=== PATIENT | male | born 1960 | race Caucasian/White ===

== ENCOUNTER 2019-09-25 08:55 | Inpatient (IN) | payer OTHER ==
[~2019-09-25] VITALS: Ht 177.8 cm; Wt 59.9 kg
[~2019-09-25 08:55] MED LIST: ACCUNEB SO1.25 MG/1; ACETAMINOPHEN325 M1 PO; ADVIL200 M1 PO; ALBUTEROL2.5 MG/0.5 INH; ALBUTEROL2.5 MG/31 INH; ALPRAZOLAM ER1 MG PO; ATIVAN1 MG; BREO ELLIPTA 11 EACH IH; BROVANA15 MCG/2 M INH; BUDESONIDE0.5 MG/2 M INH; CEFTIN 250 MG250 MG PO; CIPROFLOXACIN500 M3 PO; CLONIDINE0.1 PO; COLACE 100 MG100 MG PO; COMBIVENT INH; DIAZEPAM 5 MG5 MG PO; DIFLUCAN150 MG PO; DILTIAZEM ER240 M1 PO; DOXYCYCLINE 10100 M1; FENOFIBRATE145 M1 PO; FLEXERIL PO; GLYCOLAX POWDER17 G1 PO; HYDROCODON-ACE1 EAC7 PO; HYDROCODONE-AC120 ML PO; HYDROCODONE-AP1 EAC6 PO; K-DUR10 MEQ PO; LEVAQUIN 500 M500 M4 PO; LEVAQUIN 500 M500 M6 PO; LISINOPRIL20 MG PO; LITHIUM CARBON300 M3 PO; LITHIUM CARBONATE PO; MEDROL DOSPAK21 TAB PO; MEDROLDOSEPACK PO; MOM PO; MUCINEX TA600 MG/TA1 PO; MUCINEX TA600 MG/TA2 PO; MUCINEX600 MG PO; NICOTINE TRANSD21 M1 TRANSDERM; NORCO 5-325 TA1 EACH PO; NORFLEX100 MG PO; NYSTATIN 1100000 U/M; NYSTATIN 1100000 U/M PO; NYSTATIN PO; PERCOCET 5-3251 EACH PO; PREDNISOLONE PO; PREDNISONE 10 M10 M1; PREDNISONE 10 M10 MG PO; PREDNISONE 20 M20 M1 PO; PREDNISONE 20 M20 MG; PREDNISONE 20 M20 MG PO; PREDNISONE 5 MG5 M1; PREDNISONE50 MG PO; PRILOSEC 20 MG20 MG; PRILOSEC40 MG PO; PROAIR HFA8.5 GM; PROAIR HFA8.5 GM INH; PROZAC 10 MG CA10 MG PO; PULMICORT0.5 MG/2 M; SEROQUEL XR 30300 M1 PO; SIMVASTATIN10 MG PO; SPIRIVA INH; SYMBICORT160 MCG/4. INH; TRAMADOL 50 MG50 MG; TRAMADOL 50 MG50 MG PO; ULTRAM 50MG TAB50 MG PO; VENTOLIN HFA 1818 GM INH; XANAX 0.25 MG0.25 MG PO; XANAX 0.5 MG0.5 M1 PO; XANAX XR1 MG PO; XOPENEX 0.63 MG/3 M1 INH; XOPENEX0.63 MG/3 INH; ZOCOR 10 MG TAB10 MG PO; ZOCOR5 MG PO; ZPAK; ZPAK PO; ZYPREXA 10 MG T10 MG PO
[2019-09-25 08:57] VITALS: BP 172/93
[2019-09-25 09:33] LABS: BASOPHILS 0.6 % (0.0-2.0); EOSINOPHILS 2.3 % (0.0-3.0); HEMATOCRIT 39.8 % (42.0-52.0); HEMOGLOBIN 13.4 gm/dL (14.0-18.0); LYMPHOCYTES 18.2 % (24.0-44.0); MCH 31.6 pg (26.0-34.0); MCHC 33.6 g/dL (28.0-37.0); MCV 94.2 fL (80.0-100.0); MONOCYTES 7.7 % (1.0-8.0); PLATELET COUNT 212 thou/uL (150-400); POLYS 71.2 % (36.0-66.0); RBC 4.23 mil/uL (4.50-6.00); RDW 13.8 % (10.5-14.5); WBC 8.5 thou/uL (4.0-11.0)
[2019-09-25 09:46] LABS: BE(vivo) 6.8 mmol/L (-2 to +3); HCO3 36.9 mmol/L (22.0-26.0); PCO2 83.3 mmHg (35.0-45.0); PO2 168.3 mmHg (80.0-100.0); pH 7.264 (7.360-7.450); sO2 98.8 % (92.0-98.0)
[2019-09-25 10:03] LABS: ANION GAP 4 mmol/L (7-16); BUN 10 mg/dL (7-18); CHLORIDE 98 mmol/L (98-107); CO2 38 mmol/L (21-32); CREATININE 0.6 mg/dL (0.7-1.3); GLUCOSE 145 mg/dL (74-106); POTASSIUM 4.1 mmol/L (3.5-5.1); SODIUM 140 mmol/L (136-145)
[2019-09-25 10:08] LABS: TROPONIN-I <0.06 ng/mL (<0.06)
[2019-09-25 11:15] LABS: BE(vivo) 8.2 mmol/L (-2 to +3); HCO3 35.3 mmol/L (22.0-26.0); PCO2 59.9 mmHg (35.0-45.0); PO2 50.7 mmHg (80.0-100.0); pH 7.388 (7.360-7.450); sO2 84.5 % (92.0-98.0)
[2019-09-25 12:21] VITALS: BP 131/80
[2019-09-25 12:47] VITALS: BP 135/65
[2019-09-25 13:16] VITALS: BP 145/80
--- NOTE | 2019-09-25 15:29 | NUR ---
1320 PT ADMITTED FROM ER TO ROOM 364, PT ALERT AND ORIENTED X4, PT DENIES NAUSEA AND VOMITING. HE COMPLAINS OF NON CARDIAC CHEST PAIN ESPECIALLY WITH DEEP BREATH AND COUGH. PT ORIENTED TO ROOM. CONSENTS SIGNED BY PATIENT.PT PLACED ON TELE, SINUS TACHYCARDIA, ON 2L NC, OXYGEN WNL. PT REFUSE SCD'S, EDUCATION REINFORCED, CONTINUED TO REFUSE. PT DENIES ANY NEEDS AT THE MOMENT, CALL LIGHT IN REACH, BED AT LOWEST LEVEL WITH ALARM ON.
--- NOTE | 2019-09-25 16:11 | NUR ---
request patient to stay in enhanced precautions over night and re-evaluate in the morning.
--- NOTE | 2019-09-25 16:12 | EKG ---
[facility] [place] [address] ELECTROCARDIOGRAM REPORT Name: AUBREE CARDENAS Room #: 364-P ADM IN M.R.#: [id number] Admission: 09/25/19 Attend Phys: Chin Nova MD Discharge: Date of : 58 Report #: [id number] THIS REPORT FOR: cc: Lenore Duron Christine L. 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 : 1960 Requested By: Maricarmen Vazquez Order Number: [id number] MD: Ravin Bo Measurements Intervals [place] Rate: 119 P: 92 NH: 144 QRS: 109 QRSD: 97 T: 68 QT: 323 QTc: 455 Interpretive Statements Sinus tachycardia Consider right atrial enlargement Right axis deviation Compared to ECG 04/15/2016 15:43:23 No significant change was found Electronically Signed On 09-25-2019 16:10:23 CDT by Ravin Bo [email or web address] <ELECTRONICALLY SIGNED> By: Ravin Bo MD, [facility] 09/25/19 1610 0903 Ravin Bo MD, [facility] /EPI
[2019-09-25 16:16] VITALS: BP 114/74
--- NOTE | 2019-09-25 18:51 | NUR ---
1600 PT TESTED NEGATIVE FOR COVID19, SINDY TO NURSE CALLED AND NOTIFY. PT WILL STAY ON 3W PER TAMIR ORDER UNTIL TOMORROW. DR. STRINGER AWARE.
[2019-09-25 20:25] VITALS: BP 135/77; BP 435/77
[2019-09-26 05:56] LABS: ABSOLUTE NEUTROPHILS 8.2 thou/uL (1.4-8.2); BASOPHILS 0.2 % (0.0-2.0); LYMPHOCYTES 8.2 % (24.0-44.0); MCH 31.3 pg (26.0-34.0); MCHC 33.3 g/dL (28.0-37.0); MONOCYTES 7.4 % (1.0-8.0); PLATELET COUNT 209 thou/uL (150-400); POLYS 84.2 % (36.0-66.0); RBC 4.15 mil/uL (4.50-6.00); RDW 14.3 % (10.5-14.5); WBC 9.7 thou/uL (4.0-11.0)
[2019-09-26 06:31] LABS: CALCIUM 8.8 mg/dL (8.5-10.1); CREATININE 0.7 mg/dL (0.7-1.3); MAGNESIUM 2.2 mg/dL (1.8-2.4); POTASSIUM 4.2 mmol/L (3.5-5.1)
[2019-09-26 06:44] VITALS: BP 136/83
[2019-09-26 08:45] VITALS: BP 131/83
--- NOTE | 2019-09-26 10:06 | EKG ---
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: MIREILLE : 1960 Requested By: Zaria Cox Order Number: [id number] MD: Ravin Bo Measurements Intervals [place] Rate: 130 P: 93 NC: 112 QRS: 116 QRSD: 103 T: 28 QT: 322 QTc: 474 Interpretive Statements Sinus tachycardia Right axis deviation, possible RVH Artifact in lead(s) Compared to ECG 09/25/2019 09:03:26 No significant change was found Electronically Signed On 09-26-2019 10:04:23 CDT by Ravin Bo [email or web address] <ELECTRONICALLY SIGNED> By: Ravin Bo MD, [facility] 09/26/19 1004 044 0442 Ravin Bo MD, [facility] /EPI
[2019-09-26 12:22] VITALS: BP 152/74
--- NOTE | 2019-09-26 12:39 | NUR ---
PT CARE ASSUMED CARE AT 0700, PT ALERT AND ORIENTED X4, DENIES CHEST PAIN, SOB, NAUSEA AND VOMITING. PT ON 2L OF OXYGEN, NO SIGNS OF DISTRESS NOTED. PT COMPLAINS OF BACK PAIN, PAIN MED GIVEN PER ORDER. ASSESSMENT AND VITALS SIGNS COMPLETED. DENIES ANY NEEDS AT THE MOMENT. CALL LIGHT AND TABLE IN REACH. BED AT LOWEST LEVEL. WILL CONTINUE TO MONITOR.
[2019-09-26 16:45] VITALS: BP 138/73
[2019-09-26 19:36] VITALS: BP 141/72
--- NOTE | 2019-09-27 03:16 | NUR ---
ASSUMED CARE OF PT AT 1900HRS FROM 3W. PT IS AOX4 AND LETS NEEDS BE KNOWN. FALL PRECAUTION IN PLACE. 2L O2 VIA NC CONTINUED. PT REPORTED SOME PAIN AND ANXIETY AND WAS TREATED WITH PRN PAIN MEDS. PT WAS ABLE TO GET COMFORTABLE AND SLEEP PART OF THE SHIFT. VSS AND NO S/S OF ACUTE DISTRESS. WILL CONTINUE TO MONITOR.
[2019-09-27 03:33] VITALS: BP 123/63
[2019-09-27 07:30] VITALS: BP 140/64
--- NOTE | 2019-09-27 10:11 | EKG ---
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: MIREILLE : 1960 Requested By: Chin Nova Order Number: [id number] MD: Ravin Bo Measurements Intervals [place] Rate: 129 P: 93 MS: 139 QRS: 121 QRSD: 100 T: 51 QT: 322 QTc: 472 Interpretive Statements Sinus tachycardia Consider right atrial enlargement Right axis deviation, consider RVH Compared to ECG 09/25/2019 09:03:26 No significant change was found Electronically Signed On 09-27-2019 10:09:57 CDT by Ravin Bo [email or web address] <ELECTRONICALLY SIGNED> By: Ravin Bo MD, [facility] 09/27/19 1009 0439 0439 Ravin Bo MD, [facility] /EPI
[2019-09-27 15:55] VITALS: BP 116/68
--- NOTE | 2019-09-27 18:13 | NUR ---
Assumed patient care at 0715. Vital signs have been stable. BS hyperactive x's 4, skin is clean, warm dry and intact. Lung sounds are noted to have faint wheezes and are diminished. Patient continues on O2 @ 2 Liters. He becomes very tired and anxious upon minimal exertion (patient verbalizes the concern in his sudden change in condition). Patient now has Lorazepam 1mg po q 6hrs for anxiety that has not been decreased with Hydroxyzine. He has been educated about safety and proper use of this medication, as well as Hydrocodone that he has requested and recieved for non-cardiac chest pain. Hydroxyzine has been minimally helpful. Both Hydrocodone and Lorazepam have been notably effective when used together (or closely given together), as patient's anxiety and pain have been greatly decreased. Patient's tremors are noticeably decreased with these two medications as well. Appetite has been good, as well as fluid intake. He has also had good urine output. Patient has been pleasant and cooperative with all tests and treatments. Will continue to monitor.
[2019-09-27 19:51] VITALS: BP 122/64
[2019-09-28 07:12] VITALS: BP 126/72
--- NOTE | 2019-09-28 08:47 | NUR ---
progress pt progressing stills feels weak and not ready to go home but states overall he feels better. rt tx's continue, accuchecks and iv steroids continue on 2 liters o2 having anxiety and taking xanax with effect. slept most of night voiding qs, bm yesterday morning continue poc.
[2019-09-28 09:19] LABS: ABSOLUTE NEUTROPHILS 9.2 thou/uL (1.4-8.2); BASOPHILS 0.1 % (0.0-2.0); HEMATOCRIT 37.6 % (42.0-52.0); HEMOGLOBIN 12.6 gm/dL (14.0-18.0); LYMPHOCYTES 9.9 % (24.0-44.0); MCH 31.2 pg (26.0-34.0); MCHC 33.5 g/dL (28.0-37.0); MONOCYTES 3.9 % (1.0-8.0); PLATELET COUNT 238 thou/uL (150-400); POLYS 86.1 % (36.0-66.0); RBC 4.04 mil/uL (4.50-6.00); RDW 14.1 % (10.5-14.5); WBC 10.7 thou/uL (4.0-11.0)
[2019-09-28 09:23] LABS: CREATININE 0.7 mg/dL (0.7-1.3); POTASSIUM 3.8 mmol/L (3.5-5.1)
[2019-09-28 15:09] VITALS: BP 134/58
--- NOTE | 2019-09-28 19:27 | NUR ---
PT A&OX4, VSS, PAIN IN CHEST NON CARDIAC. IV PATENT. PATIENT COPLAINT OF ANXIETY, MEDICATION GIVEN ORDERED. PATIENT REMAINS ON 2L OF O2 AND THE SAME AMOUNT AT HOME. NO C/O OF SOA, NO SIGNS OF DISTRESS. WILL CONTINUE TO MONITOR.
[2019-09-28 19:49] VITALS: BP 152/79
--- NOTE | 2019-09-29 05:22 | NUR ---
ASSUMED PT CARE AROUND 1930. AXOX3. 2LPN VIA NC. VSS. NO S/S ACUTE DISTRESS NOTED OR REPORTED AT THIS TIME. WILL CONT TO MONITOR FOR ANY CHANGES IN CONDITION.
[2019-09-29 07:28] VITALS: BP 112/88
--- NOTE | 2019-09-29 10:00 | NUR ---
tried calling pt x 2 via phone call. no answer left message for requested return call. unable to visit with bedside nurse rt with in pt room. will cont following as needed for dcp.
[2019-09-29] MEDS ORDERED: PROAIR HFA8.5 GM INH (12:37)
[2019-09-29] MEDS ORDERED: LORAZEPAM 1 MG T1 MG PO (12:38)
[2019-09-29] MEDS ORDERED: NORCO 5-325 TA1 EAC2 PO (12:38)
[2019-09-29] MEDS ORDERED: MUCINEX600 MG PO (12:39)
[2019-09-29] MEDS ORDERED: BREO ELLIPTA 11 EACH IH (12:39)
[2019-09-29] MEDS ORDERED: PREDNISONE 10 M10 M1 PO (12:40)
[2019-09-29 14:25] VITALS: BP 112/88
--- NOTE | 2019-09-29 20:29 | NUR ---
Assumed patient care at 0715.Vital signs stable, LSCTA (diminished), skin is clean, warm, dry and intact. Anxiety and back/chest pain continue. Patient given medications for this with effectiveness. Tremors continue. O2 continues at 2 Liters per nasal cannula. Food and fluid intake are adequate. Patient was Discharged today via family member at 1515. He verbalized an understanding to all discharge instructions before signing paperwork. Patient left with all belongings.
== END 2019-09-29 16:06 | disposition home health service (06) | DRG 189 ==
LOC: ER 08:55 → 3W 11:51 → EROBS 11:51 → 4W 11:51 → 3W 12:44 → 4W 09-26 19:00
PROVIDERS: Emergency Medicine Emergency Medical Services; Nurse Practitioner; ADMIT Hospitalist
DX: J96.21 Acute and chronic respiratory failure with hypoxia (principal); J44.1 Chronic obstructive pulmonary disease with (acute) exacerbation; J84.10 Pulmonary fibrosis, unspecified; E78.5 Hyperlipidemia, unspecified; F41.9 Anxiety disorder, unspecified; G89.29 Other chronic pain; M54.9 Dorsalgia, unspecified; K59.00 Constipation, unspecified; F31.9 Bipolar disorder, unspecified; T38.0X5A Adverse effect of glucocorticoids and synthetic analogues, initial encounter; R73.09 Other abnormal glucose; Z20.828 Contact with and (suspected) exposure to other viral communicable diseases; F17.210 Nicotine dependence, cigarettes, uncomplicated; J98.4 Other disorders of lung; Z91.19 Patient's noncompliance with other medical treatment and regimen; Z79.899 Other long term (current) drug therapy; Y92.89 Other specified places as the place of occurrence of the external cause
CPT/HCPCS: 10040; 10047; 10879

== ENCOUNTER → 2019-11-06 | Outpatient (CLI) | payer OTHER ==
[~2019-11-06] MED LIST changes: +LORAZEPAM 1 MG T1 MG PO; +NORCO 5-325 TA1 EAC2 PO; +PREDNISONE 10 M10 M1 PO
== END ==
LOC: CAT 09:36
PROVIDERS: ATTEND Internal Medicine
DX: Z12.2 Encounter for screening for malignant neoplasm of respiratory organs (principal); Z87.891 Personal history of nicotine dependence; J43.8 Other emphysema

== ENCOUNTER 2020-01-23 13:28 | Inpatient (IN) | payer OTHER ==
[~2020-01-23] VITALS: Ht 175.3 cm; Wt 57.2 kg
[2020-01-23 13:29] VITALS: BP 120/77
[2020-01-23 13:52] LABS: ABSOLUTE NEUTROPHILS 9.5 thou/uL (1.4-8.2); BASOPHILS 0.4 % (0.0-2.0); EOSINOPHILS 0.2 % (0.0-3.0); HEMOGLOBIN 13.4 gm/dL (14.0-18.0); LYMPHOCYTES 15.3 % (24.0-44.0); MCH 31.5 pg (26.0-34.0); MCHC 34.4 g/dL (28.0-37.0); MCV 91.7 fL (80.0-100.0); MONOCYTES 8.5 % (1.0-8.0); PLATELET COUNT 244 thou/uL (150-400); POLYS 75.6 % (36.0-66.0); RBC 4.25 mil/uL (4.50-6.00); RDW 12.8 % (10.5-14.5); WBC 12.6 thou/uL (4.0-11.0)
[2020-01-23 13:59] LABS: CALCIUM 8.6 mg/dL (8.5-10.1); CREATININE 0.5 mg/dL (0.7-1.3); POTASSIUM 3.7 mmol/L (3.5-5.1)
[2020-01-23 14:07] LABS: ALBUMIN 3.9 g/dL (3.4-5.0); TOTAL PROTEIN 7.2 g/dL (6.4-8.2)
[2020-01-23] MEDS ORDERED: IPRAT-ALBUT 0.5-3 ML (16:35)
[2020-01-23 17:39] VITALS: BP 127/80
[2020-01-23 18:37] VITALS: BP 121/66
[2020-01-23 21:55] VITALS: BP 116/63
--- NOTE | 2020-01-23 23:21 | NUR ---
PATIENT TRANSFERRED FROM ED DEPARTMENT TO FLOOR AT 1845. ASSUMED CARE OF PATIENT AT 1900. ADMISSION H&P COMPLETED. PATIENT A&0 X 4. PATIENT REQUESTING PRN XANAX. ADMINISTERED ORDERED WITH WATER. SHORTLY AFTER ADMINISTRATION PATIENT HAD CLEAR EMESIS. PATIENT STATES HE HAS NOT DRANK OR EATEN MUCH TODAY. OFFERED GINGERALE WITH CRACKERS AND ADMINISTERED PRN ZOFRAN. PATIENT CURRENTLY RESTING IN BED ON 3L OF OXYGEN VIA NC.
[2020-01-24 04:12] VITALS: BP 120/76
[2020-01-24 04:27] LABS: CHOLESTEROL 253 mg/dL (<200); HDL CHOLESTEROL 56 mg/dL (>40); LDL CHOLESTEROL 169 mg/dL (<100); TC:HDL 4.5 Ratio (Not establshd); TRIGLYCERIDE 143 mg/dL (<150); VLDL 29 mg/dL (<40)
[2020-01-24 04:32] LABS: SERUM ASSESSMENT Clear
[2020-01-24 08:01] VITALS: BP 138/86
[2020-01-24 11:04] VITALS: BP 115/77
--- NOTE | 2020-01-24 11:46 | EKG ---
[facility] [place] [address] ELECTROCARDIOGRAM REPORT Name: AUBREE CARDENAS Room #: 207-P ADM IN M.R.#: [id number] Admission: 01/23/20 Attend Phys: Dorothy Triplett Discharge: Date of : 58 Report #: [id number] THIS REPORT FOR: cc: Fabian Slater David J. DO Lundgren, Craig H. MD [facility] ~ THIS REPORT FOR: //name// 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
[2020-01-24 15:11] VITALS: BP 124/82
--- NOTE | 2020-01-24 18:23 | NUR ---
ASSUMED CARE AT SHIFT CHANGE, ASSESSMENT CHARTED. MEDICATED FOR ANXIETY AND PAIN NEEDED, AND PATIENT REPORTING LESS CP. PROGRESSING TOWARDS GOALS AND WILL CONTINUE TO MONITOR.
[2020-01-24 19:42] VITALS: BP 110/75
--- NOTE | 2020-01-25 03:00 | NUR ---
ASSUMED CARE OF PATIENT AT 1900. PATIENT C/O PAIN IN BACK. ADMINISTERED PRN MORPHINE ORDERED. PATIENT CONTINUES ON 2L OF OXYGEN VIA NASAL CANNULA. PATIENT HAS EPISODES WHERE HE BECOMES TACHYPENIC HOWEVER OXYGEN SATURATIONS DURING THE EPISODES ARE 98 OR ABOVE. PATIENT APPEARS TO BE MORE ANXIOUS/PANIC VERSUS HAVING DIFFICULTY BREATHING. PATIENT DOES ROUTINELY ASK FOR HIS PRN XANAX WHICH APPEARS TO HELP DURING THESE TIMES ALONG WITH THE PRN MORPHINE.
[2020-01-25 04:02] LABS: ALBUMIN 3.6 g/dL (3.4-5.0); CALCIUM 8.5 mg/dL (8.5-10.1); CREATININE 0.6 mg/dL (0.7-1.3); MAGNESIUM 2.1 mg/dL (1.8-2.4); POTASSIUM 3.9 mmol/L (3.5-5.1); TOTAL BILIRUBIN 0.4 mg/dL (0.2-1.0); TOTAL PROTEIN 6.4 g/dL (6.4-8.2)
[2020-01-25 04:32] LABS: ABSOLUTE NEUTROPHILS 8.4 thou/uL (1.4-8.2); BASOPHILS 0.1 % (0.0-2.0); HEMATOCRIT 34.4 % (42.0-52.0); HEMOGLOBIN 11.8 gm/dL (14.0-18.0); LYMPHOCYTES 7.2 % (24.0-44.0); MCH 32.1 pg (26.0-34.0); MCHC 34.4 g/dL (28.0-37.0); MCV 93.2 fL (80.0-100.0); MONOCYTES 3.8 % (1.0-8.0); PLATELET COUNT 211 thou/uL (150-400); POLYS 88.9 % (36.0-66.0); RBC 3.69 mil/uL (4.50-6.00); RDW 13.3 % (10.5-14.5); WBC 9.4 thou/uL (4.0-11.0)
[2020-01-25 04:51] VITALS: BP 124/68
[2020-01-25 07:50] VITALS: BP 126/72
[2020-01-25 11:15] VITALS: BP 116/73
[2020-01-25 15:55] VITALS: BP 149/84
--- NOTE | 2020-01-25 17:52 | NUR ---
ASSESSMENT CHARTED, VSS AND SR ON THE MONITOR. PROGRESSING TOWARDS GOALS, PATIENT REPORTS LESS SOB WITH ACTIVITIES. AND WILL CONTINUE WITH POC.
[2020-01-25 19:40] VITALS: BP 165/83
[2020-01-26] VITALS (24 sets, daily range): BP systolic 71–194; BP diastolic 5–120
--- NOTE | 2020-01-26 02:15 | NUR ---
ASSESSMENTS CHARTED, MEDS CHARTED GIVEN. PATIENT RESTING ON BED DURING SHIFT. UP AT YAEL IN ROOM. C/O PAIN IN BACK DURING SHIFT. PATIENT IS HOPING TO BE DISCHARGED IN THE AM. FALL PRECAUTIONS IN PLACE DURING SHIFT.
--- NOTE | 2020-01-26 08:37 | EKG ---
[facility] [place] [address] ELECTROCARDIOGRAM REPORT Name: AUBREE CARDENAS Room #: 207-P ADM IN M.R.#: [id number] Admission: 01/23/20 Attend Phys: Dorothy Triplett Discharge: Date of : 58 Report #: [id number] THIS REPORT FOR: cc: Fabian Slater David J. DO Lundgren, Craig H. 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 : 1960 Requested By: Ravin Bo Order Number: [id number] MD: Ravin Bo Measurements Intervals [place] Rate: 81 P: 85 TN: 136 QRS: 148 QRSD: 101 T: 258 QT: 401 QTc: 466 Interpretive Statements Sinus rhythm Right ventricular hypertrophy Nonspecific T wave abnormality Compared to ECG 01/23/2020 14:22:40 Sinus tachycardia is no longer present T-wave abnormality now present Electronically Signed On 01-26-2020 8:36:56 CDT by Ravin Bo [email or web address] <ELECTRONICALLY SIGNED> By: Ravin Bo MD, [facility] 01/26/2036 4 4 Ravin Bo MD, [facility] /EPI
--- NOTE | 2020-01-26 09:18 | 2DMMODE ---
[facility] Jillian [place]ter[place] [address] 2 D/M-MODE ECHOCARDIOGRAM Name: AUBREE CARDENAS Room #: 207-P ADM IN M.R.#: [id number] Admission: 01/23/20 Attend Phys: Dorothy Donaldson Ange Discharge: Date of : 58 Report #: [id number] THIS REPORT FOR: cc: Fabian Slater David J. DO Lundgren, Craig H. MD [facility] ~ APPROVED REPORT Study performed: 01/26/2020 08:19:53 EXAM: Comprehensive 2D, Doppler, and color-flow Echocardiogram Patient Location: Bedside Room #: 207 Status: routine BSA: 1.73 HR: 84 bpm BP: 125/76 mmHg Rhythm: NSR Other Information Study Quality: Adequate/low parasternal window. Indications NSTEMI. Hx: CAD, COPD, HLP. 2D Dimensions RVDd: 41.36 mm IVSd: 10.35 (7-11mm) LVOT Diam: 21.96 (18-24mm) LVDd: 40.65 mm PWd: 8.59 (7-11mm) LVDs: 31.57 (25-40mm) Aortic Root: 34.09 mm Volumes Left Atrial Volume (Systole) Single Plane 4CH: 36.89 mL Single Plane 2CH: 28.91 mL LA ESV Index: 21.00 mL/m2 Aortic Valve AoV Peak Roderick.: 1.24 m/s AO Peak Gr.: 6.16 mmHg LVOT Max P.86 mmHg LVOT Max V: 1.10 m/s [facility] [email or web address] [address] 2 D/M-MODE ECHOCARDIOGRAM Name: THERESAAUBREEJOE MARX Room #: 207-P [facility] IN ..#: [id number] Admission: 01/23/20 Attend Phys: Dorothy Cullen Discharge: Date of : 58 Report #: [id number] ZANE Vmax: 3.36 cm2 Mitral Valve E/A Ratio: 1.2 MV Decel. Time: 172.93 ms MV E Max Roderick.: 0.96 m/s MV A Roderick.: 0.81 m/s MV PHT: 50.15 ms IVRT: 72.66 ms Pulmonary Valve PV Peak Roderick.: 1.28 m/s PV Peak Gr.: 6.51 mmHg Pulmonary Vein P Vein S: 0.83 m/s P Vein A: 0.30 m/s P Vein D: 0.61 m/s P Vein A Dur.: 133.8 msec P Vein S/D Ratio: 1.36 Tricuspid Valve TR Peak Roderick.: 2.86 m/s RAP Estimate: 10.00 mmHg TR Peak Gr.: 33.00 mmHg PA Pressure: 43.00 mmHg Left Ventricle The left ventricle is normal size. There is normal left ventricular wall thickness. Left ventricular systolic function is mildly decreased. LVEF is 45%. Distal anteroapical hypokinesis. Moderate diastolic dysfunction is present (pseudonormal filling). Right Ventricle The right ventricle is normal size. The right ventricular systolic function is normal. Atria The left atrium size is normal. The right atrium size is normal. Aortic Valve The aortic valve is normal in structure. No aortic regurgitation is present. There is no aortic valvular stenosis. Mitral Valve The mitral valve is normal in structure. Trace mitral regurgitation. No evidence of mitral valve stenosis. Tricuspid Valve [facility] [address] [place] [address] 2 D/M-MODE ECHOCARDIOGRAM Name: AUBREE CARDENAS Room #: 207-P [facility] IN M.R.#: [id number] Admission: 01/23/20 Attend Phys: Dorothy Cullen Discharge: Date of : 58 Report #: [id number] The tricuspid valve is normal in structure. Trace tricuspid regurgitation. Estimated PAP is 40-45mmHg. Pulmonic Valve Pulmonic valve is not well visualized. There is no pulmonic valvular regurgitation noted. Great Vessels The aortic root is normal in size. Ascending aorta is not well visualized. IVC is dilated and collapses <50% with inspiration. Pericardium Trace pericardial effusion <Conclusion> Left ventricular systolic function is mildly decreased. LVEF is 45%. Distal anteroapical hypokinesis. Moderate diastolic dysfunction The aortic valve is normal in structure. No aortic regurgitation or stenosis The mitral valve is normal in structure. Trace mitral regurgitation. Trace tricuspid regurgitation. Estimated pulmonary artery pressure of 40-45mmHg. Trace pericardial effusion <ELECTRONICALLY SIGNED> By: Ravin Bo MD, [facility] 01/26/20917 7 7 Ravin Bo MD, [facility] /INF
--- NOTE | 2020-01-26 15:09 | NUR ---
PT ADMITTED RELATED TO INCREASE OXYGEN USE; SOA. CM REVIEWED CHART AND SPOKE WITH CARE TEAM. CM ATTEMPTED PT TO PT'S ROOM BUT HE DIDN'T ANSWER. CM CALLED AND SPOKE WITH PT'S NURSE WHO INDICATED THAT PT WAS GOING FOR HEART CATH. CM CALLED AND LEFT FOR PT'S DTR. SHE CALLED BACK AND INDICATED THAT PT IS NOT LIVING IN AN APARTMENT ALONE HIS PAST LAST WEEK. SHE INDICATED THERE ARE NO STEPS TO ENTER AND NO STEPS INSIDE. 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 PT'S DTR INIDCATED THAT PT HAD BEEN USING HIS 'S O2 EQUIPTMENT BUT THAT THE PROVIDER WAS GOING TO BE COLLECTING IT IN THE NEAR FUTURE. DTR INDICATED THAT PT DOESN'T HAVE HIS OWN HOME O2 AT HOME. SHE INDICATED HE HAS A NEBULIZER. SHE DIDN'T RECALL PT HAVING HH IN THE PAST BUT INDICATED THAT PT HAD GONE TO [facility] IN THE PAST. DTR INDICATED SHE WAS AWAITING RESULTS OF HEART CATH AND CARE TEAM RECOMMENDATIONS RELATED TO NEEDS UPON DC. PT WILL NEED O2 TESTING DONE PRIOR TO DC. NO THERAPT ORDERS OF YET. CM TO FOLLOW INDICATED WITH DC PLANNING.
--- NOTE | 2020-01-26 17:46 | CATHLAB ---
[facility] [place] [address] INVASIVE PROCEDURE REPORT Name: AUBREE CARDENAS Room #: 207-P ADM IN M.R.#: [id number] Admission: 01/23/20 Attend Phys: Dorothy Mendoza Ioana Discharge: Date of : 58 Report #: [id number] THIS REPORT FOR: cc: Fabian Slater David J. DO Lundgren, Craig H. 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 RIC Place w/wo Plasty Single CIRC 091126 Hemostasis w/ Mynx 40979 Initial Mod Sed Same Phys/QHP Gr5y 444351 30413 Mod Sed Same Phys/QHP Ea [id number] Procedure Narrative The patient was brought urgently to the Cardiac Catheterization Laboratory and was prepped and draped in a sterile manner. The Right Groin^ was infiltrated with 1% Lidocaine subcutaneous anesthesia. A PINNACLE 6FR Sheath #[id number] sheath was inserted into the RFA^. Coronary angiography was performed using coronary diagnostic catheters. The right coronary system was accessed and visualized with a JR4 catheter. The left coronary system was accessed and visualized with a JL4 catheter. The left ventricle was accessed and visualized with a PIGTAIL catheter. Left ventriculogram was performed in 30 degree projection. Closure device was deployed with a Fr MYNXGRIP 6/7F #[id number]. The patient tolerated the procedure well and there were no complications associated with the procedure. There was no hematoma. Intraoperative Conscious Sedation Sedation start time: 14:49 Case end Time: 15:48 Fentanyl 200 mcg Versed [address] [address] INVASIVE PROCEDURE REPORT Name: AUBREE CARDENAS Room #: 207-P [facility] IN ..#: [id number] Admission: 01/23/20 Attend Phys: Dorothy Cullen Discharge: Date of : 58 Report #: [id number] Fluoro Time: 6.22 minutes Dose: DAP 5217.40 cGycm2 686 mGy Contrast Type and Amount: Omnipaque 260 ml Coronary Angiography The patient's coronary anatomy is right dominant. Diagnostic Cath Left Main Normal left main LAD Normal left anterior descending Diagonal 1 Mild proximal plaquing Diagonal 2 Small second diagonal, angiographically normal Circumflex 85% mid circumflex before two distally arising marginal branches OM1 Angiographically normal OM2 Angiographically normal OM3 Angiographically normal Right Coronary Dominant right coronary with 20-30% mid vessel plaquing Left Ventriculography The left ventricle is mildly dilated in size with abnormal contractility. The left ventricular ejection fraction is estimated to be 45%. Left ventricular wall motion abnormalities are present. There is no mitral insufficiency. Apical ballooning suggests Takotsubo cardiomyopathy. Coronary disease does not explain wall motion abnormality. Hemodynamics The aortic pressure is 128/75 mmHg with a mean of 82 mmHg. The left ventricular pressure is 136/15 mmHg with a mean of mmHg. The left ventricular end diastolic pressure is 34 mmHg. PCI Technique Lesion Anticoagulation was achieved with Heparin, Integrilin. Patient was preloaded with Plavix. Percutaneous coronary intervention was performed on the mid circumflex artery segment. The lesion stenosis prior to intervention was 85% with LUNA 3 flow. A LAUNCHER 6FR EBU 3.5 #[id number] Guide Catheter was used to engage the ostium. A Luge Wire .014 x 182CM #[id number] Interventional Guidewire was used to cross the lesion. BALLOON DILATION A Balloon catheter Rpptrip.comphora RX 2.5 x 12 #[id number] was inserted and [facility] [place] [address] [place] [address] INVASIVE PROCEDURE REPORT Name: AUBREE CARDENAS Room #: 207-P [facility] IN ..#: [id number] Admission: 01/23/20 Attend Phys: Dorothy Cullen Discharge: Date of : 58 Report #: [id number] inflated up to 6.00atm for 12seconds. Additional Inflation: 8.00atm for 22seconds. STENT DEPLOYMENT A stent RESOLUTE TITO RX 2.75 X 15 #[id number] was inserted and inflated up to 12.00atm for 32seconds. POST STENT DEPLOYMENT BALLOON DILATION A Balloon catheter Euphora NC RX 2.75 x 15 #[id number] was inserted and inflated up to 12.00atm for 31seconds. Final angiography reveals 0 % stenosis with LUNA 3 flow. Conclusion 1. Moderate left ventricular dysfunction with apical ballooning. EF 45%. Consider Takutsubo cardiomyopathy 2. Normal left main and LAD 3. Severe mid circumflex disease treated with a 2.75 x 15 mm Resolute medicated stent 4. Dominant right coronary with 20-30% mid vessel plaquing Recommendations Smoking Cessation Cardiac Rehabilitation Referral Aggressive Medical Therapy <ELECTRONICALLY SIGNED> By: Ravin Bo MD, [facility] 01/26/20 1746 45 45 Ravin Bo MD, FAC /INF
[2020-01-26 18:38] LABS: ABSOLUTE NEUTROPHILS 12.3 thou/uL (1.4-8.2); BASOPHILS 0.1 % (0.0-2.0); HEMATOCRIT 38.8 % (42.0-52.0); HEMOGLOBIN 12.9 gm/dL (14.0-18.0); LYMPHOCYTES 14.9 % (24.0-44.0); MCH 31.9 pg (26.0-34.0); MCHC 33.4 g/dL (28.0-37.0); MCV 95.7 fL (80.0-100.0); MONOCYTES 6.9 % (1.0-8.0); PLATELET COUNT 281 thou/uL (150-400); POLYS 78.1 % (36.0-66.0); RBC 4.05 mil/uL (4.50-6.00); RDW 13.8 % (10.5-14.5); WBC 15.7 thou/uL (4.0-11.0)
[2020-01-26 18:57] LABS: ALBUMIN 3.8 g/dL (3.4-5.0); CALCIUM 8.1 mg/dL (8.5-10.1); CREATININE 0.8 mg/dL (0.7-1.3); POTASSIUM 4.7 mmol/L (3.5-5.1); TOTAL BILIRUBIN 0.6 mg/dL (0.2-1.0); TOTAL PROTEIN 6.9 g/dL (6.4-8.2); TROPONIN-I 0.12 ng/mL (<0.06)
[2020-01-26 19:02] LABS: BE(vivo) -9.7 mmol/L (-2 to +3); HCO3 21.6 mmol/L (22.0-26.0); PO2 318.1 mmHg (80.0-100.0); pH 7.072 (7.360-7.450); sO2 99.5 % (92.0-98.0)
--- NOTE | 2020-01-26 19:28 | NUR ---
VASCULAR ACCESS CONSULTED FOR CVAD AFTER INTUBATION. PT'S LABS,HX,ORDER AND CONSENT PER DR BARRIGA MEDICAL NECESSITY. RIJ WAS WIDELY PATENT EITH USG. 6FR 25CM POWER TL JACC INSERTED TO 7CM EXTERNAL. BLEEDING AT SITE, GAUZE APPLIED. STAT CXR ORDERED
--- NOTE | 2020-01-26 20:08 | NUR ---
ASSUMED CARE AT SHIFT CHANGE, ALERT AND ORIENTED X4. VSS AND AFEBRILE. SR ON THE MONITOR AND ST WITH ACTIVITIES. KEPT NPO PER SHIRLEY FOR LT HEART CATH. PATIENT WAS BACK FROM CATHLAB AT 1510 S/P LT HEART CATH AND STENT TO [facility], RT GRION D/C/I, AND NO HEMATOME NOTED.
--- NOTE | 2020-01-26 20:14 | NUR ---
cxr confirmed cvad in svc. rij released for immediate use per protocol to aparna wallace
[2020-01-26 22:37] LABS: BE(vivo) 5.9 mmol/L (-2 to +3); HCO3 30.5 mmol/L (22.0-26.0); PCO2 43.8 mmHg (35.0-45.0); PO2 152.1 mmHg (80.0-100.0)
--- NOTE | 2020-01-26 22:54 | NUR ---
Pt transferred to ICU from 207, s/p code blue, pt never lost a pulse, but was in respiratory distress and was intubated. Pt has a history of COPD, and was not maintaining sats. Pt was started on propofol for vent management, and restrained to protect the RIJ placed at the bedside. Dr Bo at the bedside, consulted Pulmonary, Dr Moreno called for an update, new orders received. Pt is currently on propofol, levophed and precedex, with titration as needed, and is resting quietly at this time. Care plan to be initiated.
[2020-01-27] VITALS (40 sets, daily range): BP systolic 74–157; BP diastolic 45–97
[2020-01-27 04:51] LABS: HEMATOCRIT 32.9 % (42.0-52.0); HEMOGLOBIN 11.2 gm/dL (14.0-18.0); MCH 31.7 pg (26.0-34.0); MCHC 34.1 g/dL (28.0-37.0); MCV 93.1 fL (80.0-100.0); RBC 3.53 mil/uL (4.50-6.00); RDW 13.1 % (10.5-14.5); WBC 14.5 thou/uL (4.0-11.0)
[2020-01-27 05:14] LABS: ALBUMIN 3.4 g/dL (3.4-5.0); CALCIUM 8.3 mg/dL (8.5-10.1); CREATININE 0.8 mg/dL (0.7-1.3); POTASSIUM 4.2 mmol/L (3.5-5.1); TOTAL BILIRUBIN 0.6 mg/dL (0.2-1.0); TROPONIN-I 0.1 ng/mL (<0.06)
--- NOTE | 2020-01-27 07:41 | EKG ---
[facility] [place] [address] ELECTROCARDIOGRAM REPORT Name: AUBREE CARDENAS Room #: 251-P ADM IN M.R.#: [id number] Admission: 01/23/20 Attend Phys: Dorothy Triplett Discharge: Date of : 58 Report #: [id number] THIS REPORT FOR: cc: Fabian Slater David J. DO Santiago, Patrick MD [facility] ~ THIS REPORT FOR: //name// [facility] Test Date: 2020-01-26 Test Time: 15:59:32 Pat Name: AUBREE CARDENAS Department: Room: 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 TATE : 1960 Requested By: Ravin Bo Order Number: [id number] MD: Paul Small Measurements Intervals [place] Rate: 92 P: 79 TN: 135 QRS: 190 QRSD: 103 T: 265 QT: 379 QTc: 469 Interpretive Statements Sinus rhythm Right atrial enlargement RVH with secondary repolarization abnrm Nonspecific T abnormalities, lateral leads Baseline wander in lead(s) V5,V6 Compared to ECG 01/26/2020 07:05:08 Atrial abnormality now present T-wave abnormality still present Electronically Signed On 01-27-2020 7:41:27 CDT by Paul Small [email or web address] <ELECTRONICALLY SIGNED> By: Paul Small MD, [facility] 01/27/20 0741 1559 1559 Paul Small MD, [facility] /EPI
--- NOTE | 2020-01-27 08:17 | EKG ---
[facility] [place] [address] ELECTROCARDIOGRAM REPORT Name: AUBREE CARDENAS Room #: 251-P ADM IN M.R.#: [id number] Admission: 01/23/20 Attend Phys: Dorothy Triplett Discharge: Date of : 58 Report #: [id number] THIS REPORT FOR: cc: Fabian Slater David J. DO Lundgren, Craig H. 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 : 1960 Requested By: Ravin Bo Order Number: [id number] MD: Ravin Bo Measurements Intervals [place] Rate: 106 P: 92 [place]: 129 QRS: 189 QRSD: 110 T: 260 QT: 374 QTc: 497 Interpretive Statements Sinus tachycardia Right atrial enlargement RVH with secondary repolarization abnrm Abnormal T, consider ischemia, lateral leads Compared to ECG 01/26/2020 15:59:32 No significant change was found Electronically Signed On 01-27-2020 8:17:33 CDT by Ravin Bo [email or web address] <ELECTRONICALLY SIGNED> By: Ravin Bo MD, [facility] 01/27/20816 22 22 Ravin Bo MD, FAC /EPI
--- NOTE | 2020-01-27 08:19 | EKG ---
[facility] [address] [address] ELECTROCARDIOGRAM REPORT Name: AUBREE CARDENAS Room #: 251-P ADM IN M.R.#: [id number] Admission: 01/23/20 Attend Phys: Dorothy Triplett Discharge: Date of : 58 Report #: [id number] THIS REPORT FOR: cc: Fabian Slater David J. DO Lundgren, Craig H. 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: OTTO : 1960 Requested By: Ravin Bo Order Number: [id number] MD: Ravin Bo Measurements Intervals [place] Rate: 59 P: 87 IN: 131 QRS: 113 QRSD: 105 T: 259 QT: 511 QTc: 507 Interpretive Statements Sinus rhythm Right axis deviation RVH with repolarization abnormality Abnormal T, probable ischemia, inferior and lateral leads Prolonged QT interval Baseline wander in lead(s) V1 Compared to ECG 01/26/2020 19:23:22 No significant change was found Electronically Signed On 01-27-2020 8:19:15 CDT by Ravin Bo [email or web address] <ELECTRONICALLY SIGNED> By: Ravin Bo MD, [facility] 01/27/20818 6 6 Ravin Bo MD, [facility] /EPI
[2020-01-27 10:12] LABS: BE(vivo) 2.8 mmol/L (-2 to +3); HCO3 27.2 mmol/L (22.0-26.0); PCO2 41.5 mmHg (35.0-45.0); PO2 94.7 mmHg (80.0-100.0); pH 7.435 (7.360-7.450); sO2 97.4 % (92.0-98.0)
--- NOTE | 2020-01-27 16:15 | EKG ---
[facility] Jillian Otero [employer] [place] [address] ELECTROCARDIOGRAM REPORT Name: AUBREE CARDENAS Room #: 251-P ADM IN M.R.#: [id number] Admission: 01/23/20 Attend Phys: Dorothy Triplett Discharge: Date of : 58 Report #: [id number] THIS REPORT FOR: cc: Fabian Slater David J. DO Lammoglia, Francisco J. 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: Margarita TATE : 1960 Requested By: Ravin Bo Order Number: [id number] MD: Ephraim Mcadams Measurements Intervals [place] Rate: 78 P: 79 SC: 124 QRS: 106 QRSD: 103 T: 257 QT: 467 QTc: 533 Interpretive Statements Sinus rhythm Probable RVH w/ secondary repol abnormality Abnormal T, probable ischemia, lateral leads Prolonged QT interval Compared to ECG 01/27/2020 07:27:43 No significant changes Electronically Signed On 01-27-2020 16:15:15 CDT by Ephraim Mcadams [email or web address] <ELECTRONICALLY SIGNED> By: Ephraim Mcadams MD 01/27/20 1615 1407 1407 Ephraim Mcadams MD /EPI
--- NOTE | 2020-01-27 19:37 | NUR ---
PATIENT EXTUBATED AT 1025 TO FACE SHIELD AT 35%; TITRATED TO 3-6 l N/C; AWAKE, ALERT, APPROPRIATELY F/C. LEVO TURNED OFF AT 1400, SBP 120-130S; OCCASIONALLY C/O OF CHEST TIGHTNESS, EKG DONE, DR. ALONSO NOTIFIED AT (1215) - STATES TO CONT. WITH POC. DAUGHTER VISITED WITH PATIENT AT 1700, UPDATED ON STATUS AND POC.
--- NOTE | 2020-01-28 03:06 | NUR ---
PT TRANSFERRED FROM ICU AT ABOUT 2200. PT ALERT AND ORIENTED. VITALS STABLE. REPORTS GENERAL PAIN RATING AT 9/10. PT ON 6 L NASAL CANULA, SATS 100%. SOB WITH EXERTION. DENIES CHEST PAIN , NAUSEA/VOMITING OR DIARRHEA. WILL CONTINUE TO MONITOR AND FOLLOW POC.
[2020-01-28 03:56] VITALS: BP 144/83
[2020-01-28 07:52] VITALS: BP 171/97
--- NOTE | 2020-01-28 08:48 | EKG ---
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 : 1960 Requested By: Ravin Bo Order Number: [id number] MD: Paul Small Measurements Intervals [place] Rate: 93 P: 84 [place]: 135 QRS: 106 QRSD: 110 T: 266 QT: 369 QTc: 459 Interpretive Statements Sinus rhythm Probable RVH w/ secondary repol abnormality Nonspecific T abnormalities, lateral leads Baseline wander in lead(s) V1 Compared to ECG 01/27/2020 14:07:11 Possible ischemia no longer present Prolonged QT interval no longer present T-wave abnormality still present Electronically Signed On 01-28-2020 8:47:55 CDT by Paul Small [email or web address] <ELECTRONICALLY SIGNED> By: Paul Small MD, [facility] 01/28/2047 8 8 Paul Small MD, [facility] /EPI
[2020-01-28 11:46] LABS: ABSOLUTE NEUTROPHILS 12.1 thou/uL (1.4-8.2); BASOPHILS 0.2 % (0.0-2.0); HEMATOCRIT 34.4 % (42.0-52.0); HEMOGLOBIN 11.9 gm/dL (14.0-18.0); LYMPHOCYTES 2.5 % (24.0-44.0); MCH 31.9 pg (26.0-34.0); MCHC 34.5 g/dL (28.0-37.0); MCV 92.4 fL (80.0-100.0); MONOCYTES 6.4 % (1.0-8.0); PLATELET COUNT 214 thou/uL (150-400); POLYS 90.9 % (36.0-66.0); RBC 3.73 mil/uL (4.50-6.00); WBC 13.3 thou/uL (4.0-11.0)
[2020-01-28 11:52] VITALS: BP 130/79
[2020-01-28 12:01] LABS: ALBUMIN 3.5 g/dL (3.4-5.0); CALCIUM 8.3 mg/dL (8.5-10.1); CREATININE 0.7 mg/dL (0.7-1.3); MAGNESIUM 2.5 mg/dL (1.8-2.4); PHOSPHORUS 3.5 mg/dL (2.5-4.9); POTASSIUM 3.7 mmol/L (3.5-5.1); TOTAL BILIRUBIN 0.7 mg/dL (0.2-1.0); TOTAL PROTEIN 6.4 g/dL (6.4-8.2)
[2020-01-28 15:50] VITALS: BP 127/74
--- NOTE | 2020-01-28 17:06 | NUR ---
ASSESSMENT CHARTED - MEDS PER MAR - NO CO'S OF NASUEA. GIVEN HYDRCODONE FOR CO'S OF CHEST/ BACK PAIN WITH MOD RELIEF - GIVEN XANEX REQUESTED FOR ANXIOUSNESS WITH GOOD RELIEF. WAS SEEN BY PHYS THERAPY THIS SHIFT. DAVID DIET AND FLUIDS. ACCUCHECKS CHARTED . NO CO'S AT THE PRESENT TIME.
[2020-01-28 20:33] VITALS: BP 151/82
[2020-01-29 03:20] VITALS: BP 121/57
[2020-01-29 06:05] LABS: CALCIUM 8.1 mg/dL (8.5-10.1); CREATININE 0.4 mg/dL (0.7-1.3); MAGNESIUM 2.2 mg/dL (1.8-2.4); PHOSPHORUS 3.6 mg/dL (2.5-4.9)
--- NOTE | 2020-01-29 06:20 | NUR ---
NO EVENT OVERNIGHT. PT ALERT AND ORIENTED. VSS. C/O BACK AND CHEST PAIN ALLEVIATED BY PRN NORCO. 5L NC O2. RECEIVING BREATHING TREATMENTS. NO FURTHER CONCERNS AT THIS TIME. WILL CONTINUE TO MONITOR AND FOLLOW POC.
[2020-01-29 08:30] VITALS: BP 140/62
--- NOTE | 2020-01-29 14:00 | NUR ---
Assess due to length of stay. Admit with copd exacerbation, and NSTEMI. Followed by ST and requires modified diet of carb control, mech altered chopped and no mix consistencies. Already has Ensure Enlive ordered and eating 50-100% of meals. Wt down about 5 lb this past week. Would encourage consumption of 75% meals and ensure per day to help meet nutrition needs. low nutrition risk
[2020-01-29 16:30] VITALS: BP 132/64
--- NOTE | 2020-01-29 16:58 | NUR ---
Met with patient, reviewed with patient home oxygen arrangements. He has been using his wifes concentrator. Discussed process for obtaining his own oxygen equiptment. He is agreeable. He is also agreeable if Home health ordered at dc. He has no preference. Referral to [facility]. IF patient should discharge on weekend and need home oxygen. Need to page RT to alert of need for home oxygen. If dc over weekend and home health ordered. Call [facility] home health care. [phone] alert of discharge [phone] fax orders.
--- NOTE | 2020-01-29 17:12 | NUR ---
FAXED REFERRAL TO [facility] RECEIVED CONFIRMATION AND LEFT MSG WITH JACKY IN INTAKE SHE WILL REVIEW FOR POSS DC OVER WEEKEND.
--- NOTE | 2020-01-29 17:31 | NUR ---
ASSUMED CARE PT SHIFT CHANGE. ASSESSMENTS CHARTED.MEDS GIVEN PER JUL. PT ALERT AND ORIENTED.VSS. C/O PAIN FROM COUGHING MANAGED WITH PO PAIN MEDS. PT C/O BEING ANXIOUS XANAX ADMINISTERED WITH RELIEF. O2 SATS WNL ON 3-4L. PT RELUCTANT IN DOING THERAPIES AND RT VEST, PULMONARY PHYSICIAN TALKED WITH PT, AND PT SEEMS TO BE MORE ACCEPTING IN DOING VEST TREATMENT TO HELP WITH BREATHING. PT CURRENTLY SITTINGUP IN BED, PT ASKING FOR MEDICINE FOR ANXIETY. WILL TREAT APPROPRIATELY. WILL CONTINUE TO MONITOR PT AND PASS ON REPORT TO NOC RN.
[2020-01-29 20:45] VITALS: BP 109/61
[2020-01-30 00:06] LABS: GLYCOHEMOGLOBIN (HGB A1C) 5.6 % (4.8-5.6)
[2020-01-30 04:00] VITALS: BP 116/57
[2020-01-30 07:36] VITALS: BP 102/61
--- NOTE | 2020-01-30 07:46 | NUR ---
ASSUME CARE 1900. PT/VITALS STABLE. INTERMITTENT NON VARDIAC CHEST PAIN NOTED WITH MODERATE RELIEF FROM PAIN MEDS. GOOD TOLERANCE TO ACTIVITY WITH SOME SOB NOTED ON EXERTION. ASSESSMENT CHARTED. PROGREESING WELL WITH POC. NO DISTRESS NOTED/SR. PLAN IS POSSIBLE DISCHARGE TODAY. WILL CONTINUE TO MONITOR AND FOLLOW WITH POC. GROIN SITE CDI/ BRUISED
[2020-01-30 12:04] VITALS: BP 123/60
[2020-01-30 13:49] VITALS: BP 123/60
--- NOTE | 2020-01-30 15:50 | NUR ---
PT ALERT AND ORIENTED. VSS. SOA NOTED WITH ACTIVITY. PRN PAIN MED AND ANXIETY MED GIVEN WITH PARTIAL RELIEF. NO CONCERNS AT THIS TIME.
[2020-01-30 17:11] VITALS: BP 129/63
[2020-01-30 21:03] VITALS: BP 120/66
--- NOTE | 2020-01-31 03:22 | NUR ---
ASSESSMENT DOCUMENTED.PT BEEN RESTING IN NO ACUTE DISTRESS.A/OX4.VSS.IN GOOD MOOD.REMAINS ON O2 AT 3LITERS PNC.NO RESP DISTRESS REPORTED.DENIES NEEDS AT THIS TIME.WILL CONT TO MONITOR PER POC.
[2020-01-31 05:16] VITALS: BP 103/60
[2020-01-31 08:00] VITALS: BP 109/58
[2020-01-31 11:50] VITALS: BP 113/40
--- NOTE | 2020-01-31 12:06 | NUR ---
VASCULAR ACCESS NURSE ROUNDING, THIS PATIENT HAS A CENTRAL LINE THAT IS NO LONGER NECESSARY. HE ALSO HAS A WORKING PERIPHERAL PIV. IF APPROPRIATE, REMOVAL OF CENTRAL LINE IS SUGGESTED TO DECREASE RISK OF BLOOD STREAM INFECTION. THIS PATIENT IS ON ONLY 1 IVP MED AT THIS TIME
[2020-01-31] MEDS ORDERED: NICOTINE TRANSD14 M1 TRANSDERM (14:08)
[2020-01-31] MEDS ORDERED: LEVOFLOXACIN500 MG PO (14:08)
[2020-01-31] MEDS ORDERED: LIPITOR40 MG PO (14:10)
[2020-01-31] MEDS ORDERED: CLOPIDOGREL75 MG PO (14:10)
[2020-01-31] MEDS ORDERED: ADULT LOW DOSE81 MG PO (14:11)
[2020-01-31] MEDS ORDERED: METOPROLOL SUCC50 MG PO (14:11)
[2020-01-31] MEDS ORDERED: LISINOPRIL10 MG PO (14:11)
[2020-01-31] MEDS ORDERED: PREDNISONE 10 M10 MG PO (14:13)
[2020-01-31] MEDS ORDERED: PULMICORT0.5 MG/21 INH (14:13)
--- NOTE | 2020-01-31 16:33 | NUR ---
ASSESSMENT CHARTED. PT ALERT AND ORIENTED. VSS. PRN PAIN MED AND ANXIETY MED GIVEN WITH PARTIAL RELIEF. SEEN BY DR. BACA AND DR. EVERETT. ORDERS GIVEN TO DISCHARGE PT TO HOME. DISCHARGE INSTRUCTIONS GIVEN TO PT. PT VERBERLISED UNDERSTANDING. PT LEFT THE FACILITY ACCOMPANIED BY THE DAUGHTER.
== END 2020-01-31 16:36 | disposition home health service (06) | DRG 246 ==
LOC: ER 13:28 → 2N 17:18 → ICU 17:18 → EROBS 17:18 → 2N 18:50 → ICU 01-26 18:51 → 2N 01-27 21:13
PROVIDERS: Emergency Medicine; Internal Medicine; Pediatrics; ADMIT Hospitalist; ATTEND Hospitalist
PROC: 4A023N7 Measurement of Cardiac Sampling and Pressure, Left Heart, Percutaneous Approach (ICD-10-PCS; principal; 2020-01-26)
PROC: B2151ZZ Fluoroscopy of Left Heart using Low Osmolar Contrast (ICD-10-PCS; principal; 2020-01-26)
PROC: 0BH17EZ Insertion of Endotracheal Airway into Trachea, Via Natural or Artificial Opening (ICD-10-PCS; principal; 2020-01-26)
PROC: B2111ZZ Fluoroscopy of Multiple Coronary Arteries using Low Osmolar Contrast (ICD-10-PCS; principal; 2020-01-26)
PROC: 027034Z Dilation of Coronary Artery, One Artery with Drug-eluting Intraluminal Device, Percutaneous Approach (ICD-10-PCS; principal; 2020-01-26)
PROC: 5A1935Z Respiratory Ventilation, Less than 24 Consecutive Hours (ICD-10-PCS; principal; 2020-01-26)
PROC: 02HV33Z Insertion of Infusion Device into Superior Vena Cava, Percutaneous Approach (ICD-10-PCS; 2020-01-26)
PROC: 5A09357 Assistance with Respiratory Ventilation, Less than 24 Consecutive Hours, Continuous Positive Airway Pressure (ICD-10-PCS; 2020-01-27)
DX: I21.4 Non-ST elevation (NSTEMI) myocardial infarction (principal); J96.21 Acute and chronic respiratory failure with hypoxia; J96.22 Acute and chronic respiratory failure with hypercapnia; I50.31 Acute diastolic (congestive) heart failure; E87.1 Hypo-osmolality and hyponatremia; J44.1 Chronic obstructive pulmonary disease with (acute) exacerbation; I42.9 Cardiomyopathy, unspecified; E78.5 Hyperlipidemia, unspecified; F41.9 Anxiety disorder, unspecified; F17.210 Nicotine dependence, cigarettes, uncomplicated; G89.29 Other chronic pain; M54.9 Dorsalgia, unspecified; Z79.899 Other long term (current) drug therapy; F31.9 Bipolar disorder, unspecified; Z99.81 Dependence on supplemental oxygen; I25.10 Atherosclerotic heart disease of native coronary artery without angina pectoris; I27.20 Pulmonary hypertension, unspecified; R91.1 Solitary pulmonary nodule; I11.0 Hypertensive heart disease with heart failure; R73.9 Hyperglycemia, unspecified; Z60.2 Problems related to living alone
CPT/HCPCS: 10078; 10081

== ENCOUNTER 2020-04-04 14:54 | Inpatient (IN) | payer OTHER ==
[~2020-04-04] VITALS: Ht 175.3 cm; Wt 63.5 kg
[~2020-04-04 14:54] MED LIST changes: -LEVOFLOXACIN750 MG PO; -LISINOPRIL5 MG PO; -PREDNISONE 5 MG5 MG PO
[2020-04-04 14:55] VITALS: BP 193/116
[2020-04-04 15:49] LABS: ABSOLUTE NEUTROPHILS 5.2 thou/uL (1.4-8.2); EOSINOPHILS 4.2 % (0.0-3.0); HEMATOCRIT 34.3 % (42.0-52.0); LYMPHOCYTES 33.6 % (24.0-44.0); MCH 32.5 pg (26.0-34.0); MCHC 34.9 g/dL (28.0-37.0); MCV 93.2 fL (80.0-100.0); MONOCYTES 10.1 % (1.0-8.0); PLATELET COUNT 252 thou/uL (150-400); POLYS 51.1 % (36.0-66.0); RBC 3.67 mil/uL (4.50-6.00); RDW 13.9 % (10.5-14.5); WBC 10.1 thou/uL (4.0-11.0)
[2020-04-04 16:00] LABS: BE(vivo) 1.3 mmol/L (-2 to +3); HCO3 28.3 mmol/L (22.0-26.0); PCO2 55.5 mmHg (35.0-45.0); PO2 107.4 mmHg (80.0-100.0); sO2 97.5 % (92.0-98.0)
[2020-04-04 16:01] LABS: pH 7.325 (7.360-7.450)
[2020-04-04 16:01] LABS: ANION GAP 8 mmol/L (7-16); BUN 8 mg/dL (7-18); CALCIUM 9.2 mg/dL (8.5-10.1); CHLORIDE 102 mmol/L (98-107); CO2 31 mmol/L (21-32); CREATININE 0.6 mg/dL (0.7-1.3); GLUCOSE 104 mg/dL (74-106); POTASSIUM 3.7 mmol/L (3.5-5.1); SODIUM 141 mmol/L (136-145)
[2020-04-04 16:10] LABS: TROPONIN-I <0.06 ng/mL (<0.06)
[2020-04-04 20:56] VITALS: BP 147/103
[2020-04-04 20:57] VITALS: BP 141/88
--- NOTE | 2020-04-04 21:06 | NUR ---
Called to give report to ILDA Henson but nobody was able to find him and when they do he will call
[2020-04-04 22:22] VITALS: BP 124/84
[2020-04-05 02:52] VITALS: BP 127/70
--- NOTE | 2020-04-05 04:33 | NUR ---
PT NEW ADMIT FROM ED WITH COPD EXACER. ALERT AND ORIENTED. DENIES PAIN, CHEST PAIN, NAUSEA OR VOMITING. PT IS A CHRONIC O2 USER, AT 2L AT HOME. EXTREMELY SOB WITH EXERTION AND TACHYCARDIA WITH ANY ACTIVITIES. PT THEN SETTLES DOWN WITH A RESTING HR OF BETWEEN 90- 110 SR- ST. DENIES DIZZINESS. ALL ADMISSION COMPLETE. PT REPORTS TO HAVE QUIT SMOKING IN BUT SOB SEEM TO PERSIST. NO OTHER CONCERNS. WILL CONTINUE TO MONITOR AND FOLLOW POC.
--- NOTE | 2020-04-05 04:42 | NUR ---
PT ALERT AND ORIENTED X 2. NOW ABLE TO CARRY A CONVERSATION A LITTLE COHERENTLY BUT STILL CONFUSED. RESTLESS WITH PAIN AND SOMETIME PT IS NOT AWARE THAT SHE MOANING. MILD NAUSEA OVER NIGHT, ALLEVIATED BY ZOFRAN. MAINTIANED ON ABX AND IV FLUIDS. DENIES CHEST PAIN BUT REPORTS ABDOMINAL PAIN. AND LE INTERMITTENTLY. SR-ST ON THE MONITOR. WILL CONTINUE WITH POC.
[2020-04-05 05:02] VITALS: BP 126/62
[2020-04-05 07:30] VITALS: BP 119/85
--- NOTE | 2020-04-05 07:35 | EKG ---
[facility] [place] [address] ELECTROCARDIOGRAM REPORT Name: AUBREE CARDENAS Room #: 213-P ADM IN M.R.#: [id number] Admission: 04/04/20 Attend Phys: Dorothy Triplett Discharge: Date of : 58 Report #: [id number] THIS REPORT FOR: cc: Fabian Slater David J. DO Lundgren, Craig H. 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: NO : 1960 Requested By: Chaitanya Hollins Order Number: [id number] MD: Ravin Bo Measurements Intervals [place] Rate: 107 P: 81 [place]: 175 QRS: 94 QRSD: 101 T: 74 QT: 361 QTc: 482 Interpretive Statements Sinus tachycardia RVH Borderline prolonged QT interval Compared to ECG 01/28/2020 07:39:10 T-wave abnormality no longer present Electronically Signed On 04-05-2020 7:34:46 EMBLEM CUTTER by Ravin Bo [email or web address] <ELECTRONICALLY SIGNED> By: Ravin Bo MD, FAC 04/05/20 0734 1637 1637 Ravin Bo MD, [facility] /EPI
[2020-04-05 11:30] VITALS: BP 110/61
[2020-04-05 16:45] VITALS: BP 98/60
[2020-04-05 18:39] VITALS: BP 111/60
--- NOTE | 2020-04-05 19:27 | NUR ---
ASSUMED CARE PT APPROX 0700. PT ALERT AND ORIENTED.VSS. C/O PAIN MANAGED WITH PO TYLENOL. O2 SATS WNL ON 2-3L. PT REQUESTS XANAX FOR ANXIETY WITH RELIEF. PT UP AD YAEL TOLERATING WELL. HOPEFUL FOR DC IN AM. TX ORDERS ACKNOWLEDGED AND IMPLEMENTED.REPORT GIVEN TO RN. PT MOVED TO 464 WITH ALL BELONGINGS.
--- NOTE | 2020-04-06 05:23 | NUR ---
ASSUMED CARE OF PT AROUND 1900HRS. PT AOX4 AND LETS NEEDS BE KNOWN. PT IS UP AD YAEL. 2L O2 VIA NC CONTINUED AT HOME. PT REPORTED SOME SOA AND ANXIETY. PRNS PROVIDED. PT DENIED PAIN OR NAUSEA. PT WAS ABLE TO GET COMFORTABLE AND SLEEP PART OF THE SHIFT. VSS AND NO S/S OF ACUTE DISTRESS. WILL CONTINUE TO MONITOR.
[2020-04-06] MEDS ORDERED: METOPROLOL SUCC50 MG PO (09:56)
[2020-04-06] MEDS ORDERED: LISINOPRIL5 MG PO (09:57)
[2020-04-06] MEDS ORDERED: CLOPIDOGREL75 MG PO (09:57)
[2020-04-06] MEDS ORDERED: PREDNISONE 5 MG5 MG PO (09:58)
[2020-04-06] MEDS ORDERED: LEVOFLOXACIN750 MG PO (09:58)
[2020-04-06 10:26] VITALS: BP 118/73
--- NOTE | 2020-04-06 10:38 | NUR ---
PT ADMITTED RELATED TO COPD EXACERBATION. CM REVIEWED CHART AND SPOKE WITH CARE TEAM. CM MET WITH PT AT BEDSIDE THIS DAY. PT APPEARED TO BE A&O X4. CM ROLE INTRODUCED. PT INDICATED HE LIVES ALONE IN AN APARTMENT WITH NO STEPS TO ENTER AND NO STEPS INSIDE. PT INDICATED HE HAS A CANE AND A FWW AT HOME BUT HADN'T BEEN USING THEM. PT HAS NEBULIZER AND HOME O2 THROUGH [facility] AT 2L AT REST AND 3L WITH ACTIVITY. PT'S PCP IS DR. FLORY LOPEZ. IT APPEARES LUIS PT HAD [facility] UPON LAST DC. CARE TEAM INDICATED THAT PT IS MEDICALLY STABLE TO DISCHARE HOME THIS DAY. PT INDICATED HE WOULD NEED TRANSPORT ARRANGED NO ONE CAN PICK HIM UPON TODAY. PT IS AGREEABLE TO A CAB AND HAS HIS OWN PORTABLE O2 FOR THE RIDE. CM TO PROVIDE PT WITH CAB VOUCHER. PT IS TO DC HOME TO SELF CARE. NO OTHER CM INTERVENTION INDICATED. CASE CLOSED.
--- NOTE | 2020-04-06 12:09 | NUR ---
Received awake on bed. Due medications given as prescribed, able to swallow meds w/o difficulty. On O2 at 2lpm via nasal cannula, pt's baseline. On regular diet- tolerating well; no nausea, no vomiting and no abdominal pain noted. On blood sugar monitoring, taken and recorded accordingly; with sliding scale insulin ordered. Continent of bowel and bladder, able to use the urinal and go to the toilet independently. With SL at L FA- intact and flushing well; on IV antibiotics. Up ad pamela, independent with ADLs. To continue monitoring patient. Pt seen and examined by Dr Triplett, discharge orders made. Discharge instructions, follow up schedule given and instructed; discharge forms signed. CM informed that pt will be needing transport home- cab voucher provided IV discontinued. Pt brought out of the unit via wheelchair with his personal belongings. Security informed that pt has cab voucher and needs to be assisted. Pt discharged.
== END 2020-04-06 12:15 | disposition home or self-care (01) | DRG 189 ==
LOC: ER 14:54 → 2N 18:12 → EROBS 18:12 → 2N 21:32 → 4W 04-05 18:24
PROVIDERS: Emergency Medicine; ADMIT Hospitalist; ATTEND Hospitalist
DX: J96.20 Acute and chronic respiratory failure, unspecified whether with hypoxia or hypercapnia (principal); J44.1 Chronic obstructive pulmonary disease with (acute) exacerbation; E78.5 Hyperlipidemia, unspecified; M54.89 Other dorsalgia; G89.29 Other chronic pain; R91.1 Solitary pulmonary nodule; F31.9 Bipolar disorder, unspecified; F17.210 Nicotine dependence, cigarettes, uncomplicated; I25.10 Atherosclerotic heart disease of native coronary artery without angina pectoris; F41.9 Anxiety disorder, unspecified; I10 Essential (primary) hypertension; Z79.2 Long term (current) use of antibiotics; Z87.01 Personal history of pneumonia (recurrent); Z79.82 Long term (current) use of aspirin; Z79.899 Other long term (current) drug therapy; Z99.81 Dependence on supplemental oxygen
CPT/HCPCS: 10045; 10081

== ENCOUNTER → 2020-04-04 | Outpatient (CLI) | payer OTHER ==
[~2020-04-04] MED LIST changes: +ADULT LOW DOSE81 MG PO; +CLOPIDOGREL75 MG PO; +IPRAT-ALBUT 0.5-3 ML; +LEVOFLOXACIN500 MG PO; +LEVOFLOXACIN750 MG PO; +LIPITOR40 MG PO; +LISINOPRIL10 MG PO; +LISINOPRIL5 MG PO; +METOPROLOL SUCC50 MG PO; +NICOTINE TRANSD14 M1 TRANSDERM; +PREDNISONE 5 MG5 MG PO; +PULMICORT0.5 MG/21 INH
== END ==
LOC: SJCVC 13:42
PROVIDERS: ATTEND Internal Medicine
DX: I45.10 Unspecified right bundle-branch block (principal); R00.0 Tachycardia, unspecified; I25.10 Atherosclerotic heart disease of native coronary artery without angina pectoris; J96.11 Chronic respiratory failure with hypoxia; I10 Essential (primary) hypertension; I51.81 Takotsubo syndrome; E78.5 Hyperlipidemia, unspecified; I25.2 Old myocardial infarction; Z79.899 Other long term (current) drug therapy; Z87.891 Personal history of nicotine dependence

== ENCOUNTER → 2020-06-06 | Outpatient (CLI) | payer OTHER ==
[~2020-06-06] MED LIST changes: +LEVOFLOXACIN750 MG PO; +LISINOPRIL5 MG PO; +PREDNISONE 5 MG5 MG PO
== END ==
LOC: RAD 13:49
PROVIDERS: ATTEND Pediatrics
DX: R91.8 Other nonspecific abnormal finding of lung field (principal)

== ENCOUNTER → 2021-05-08 | Outpatient (CLI) | payer OTHER ==
--- NOTE | 2021-05-08 12:51 | 2DMMODE ---
[facility] [place] [address] 2 D/M-MODE ECHOCARDIOGRAM Name: AUBREE CARDENAS Room #: REG Teresa Johnson.#: [id number] Admission: 05/08/21 Attend Phys: Ravin Bo MD, Discharge: Date of : 58 Report #: [id number] THIS REPORT FOR: cc: Fabian Slater David J. DO Lundgren, Craig H. MD [facility]IN [facility] ~ APPROVED REPORT Study performed: 05/08/2021 11:24:28 EXAM: Comprehensive 2D, Doppler, and color-flow Echocardiogram Patient Location: Out-Patient Room #: 2 Status: routine BSA: 1.73 HR: 118 bpm BP: 138/80 mmHg Rhythm: Tachycardia Other Information Study Quality: Technically Difficult Technically limited study due to lung disease. Indications CAD Cardiomyopathy 2D Dimensions IVSd: 8.31 (7-11mm) LVOT Diam: 19.93 (18-24mm) LVDd: 40.81 mm PWd: 8.53 (7-11mm) LVDs: 32.87 (25-40mm) Left Atrium: 26.24 (27-40mm) Aortic Root: 29.22 mm IVC: 17.00 mm Aortic Valve AoV Peak Roderick.: 1.01 m/s AO Peak Gr.: 4.06 mmHg LVOT Max P.25 mmHg LVOT Max V: 0.90 m/s ZANE Vmax: 2.79 cm2 Pulmonary Valve PV Peak Roderick.: 1.12 m/s PV Peak Gr.: 5.02 mmHg [facility] [address] [place] [address] 2 D/M-MODE ECHOCARDIOGRAM Name: THERESAAUBREE MARX Room #: REG DEANNE Palafox#: [id number] Admission: 05/08/21 Attend Phys: Ravin Bo, Discharge: Date of : 58 Report #: [id number] Tricuspid Valve TR Peak Roderick.: 2.72 m/s TR Peak Gr.: 29.49 mmHg PA Pressure: 34.00 mmHg Left Ventricle The left ventricle is normal size. There is normal LV segmental wall motion. There is normal left ventricular wall thickness. The left ventricular systolic function is normal. The left ventricular ejection fraction is within the normal range. LVEF is 55-60%. Mild diastolic dysfunction Right Ventricle The right ventricle is normal size. The right ventricular systolic function is normal. Atria The left atrium size is normal. The right atrium size is normal. Aortic Valve The aortic valve is normal in structure. No aortic regurgitation is present. There is no aortic valvular stenosis. Mitral Valve The mitral valve is normal in structure. There is no mitral valve regurgitation noted. No evidence of mitral valve stenosis. Tricuspid Valve The tricuspid valve is normal in structure. There is trace tricuspid regurgitation. Estimated PAP 35 mmHg. Pulmonic Valve The pulmonary valve is normal in structure. There is no pulmonic valvular regurgitation. Great Vessels The aortic root is normal in size. IVC is normal in size and collapses >50% with inspiration. Pericardium There is no pericardial effusion. <Conclusion> The left ventricular systolic function is normal. [facility] [place] [address] 2 D/M-MODE ECHOCARDIOGRAM Name: AUBREE CARDENAS Room #: REG [facility]#: [id number] Admission: 05/08/21 Attend Phys: Ravin Bo, Discharge: Date of : 58 Report #: [id number] There is normal LV segmental wall motion. LVEF is 55-60%. Mild diastolic dysfunction The aortic valve is normal in structure. No aortic regurgitation or stenosis The mitral valve is normal in structure. No mitral valve regurgitation. There is trace tricuspid regurgitation. Estimated pulmonary artery pressure of 35 mmHg. There is no pericardial effusion. <ELECTRONICALLY SIGNED> By: Ravin Bo MD, FACC 05/08/21 125 50 50 Ravin Bo MD, FACC /INF
== END ==
LOC: CV 10:09
PROVIDERS: ATTEND Internal Medicine
DX: I51.89 Other ill-defined heart diseases (principal); I25.10 Atherosclerotic heart disease of native coronary artery without angina pectoris; I51.81 Takotsubo syndrome

== ENCOUNTER → 2021-05-29 | Outpatient (CLI) | payer OTHER | LOC: CAT 11:17 | PROVIDERS: ATTEND Pediatrics | DX: J43.9 Emphysema, unspecified (principal); R91.1 Solitary pulmonary nodule; I25.10 Atherosclerotic heart disease of native coronary artery without angina pectoris; M25.78 Osteophyte, vertebrae; M40.14 Other secondary kyphosis, thoracic region; R91.8 Other nonspecific abnormal finding of lung field ==